=== PATIENT | female | born 1990 | race Caucasian/White ===

== ENCOUNTER 2019-04-05 17:28 | Emergency (ER) | payer MEDICAID ==
[~2019-04-05] VITALS: Ht 172.7 cm; Wt 68.2 kg
[2019-04-05] MEDS ORDERED: PREN-18 PO (17:53)
[2019-04-05] MEDS ORDERED: ALBUTEROL SULFATE 2.5 MG/0.5 ML NEB SOLUTION NEB ONE (18:00)
[2019-04-05] MEDS ORDERED: IPRATROPIUM BROMIDE 0.5 MG/2.5 ML NEB SOLUTION NEB ONE ×2 (18:00→20:00)
[2019-04-05] MEDS ORDERED: PredniSONE 20 MG TABLET PO ONE (20:00)
[2019-04-05] MEDS ORDERED: IBUPROFEN 600 MG TABLET PO ONE (20:00)
[2019-04-05] MEDS ORDERED: ALBUTEROL SULFATE 5 MG/ML 20 ML NEB SOLN [BULK] NEB ONE (20:00)
[2019-04-05] MEDS ORDERED: ALBUTEROL SULFATE HFA 90 MCG/PUFF 8 GM INHALER IH ONE (21:00)
[2019-04-05 21:01] VITALS: BP 122/71
== END 2019-04-05 21:22 | disposition home or self-care (01) ==
LOC: EMS 17:33
DX: J45.901 Unspecified asthma with (acute) exacerbation (principal); J18.9 Pneumonia, unspecified organism; F17.210 Nicotine dependence, cigarettes, uncomplicated
CPT/HCPCS: 71046; 81025; 94640; 99285; J7512; J3535

== ENCOUNTER 2019-04-16 17:37 | Emergency (ER) | payer MEDICAID ==
[~2019-04-16] VITALS: Ht 175.3 cm; Wt 80.5 kg
[~2019-04-16 17:37] MED LIST: PREN-18 PO
[2019-04-16 23:00] VITALS: BP 116/78
== END 2019-04-16 23:00 | disposition home or self-care (01) ==
LOC: EMS 17:39
DX: M25.512 Pain in left shoulder (principal); J45.909 Unspecified asthma, uncomplicated; Z98.890 Other specified postprocedural states; Z87.891 Personal history of nicotine dependence; Z79.899 Other long term (current) drug therapy
CPT/HCPCS: 93005